=== PATIENT | female | born 1965 | race Caucasian/White ===

== ENCOUNTER → 2017-01-21 | Outpatient (CLI) | payer BC ==
--- NOTE | 2017-01-26 10:20 | RAD ---
DATE: 01/21/2017 EXAM: MAMMO ALBER DIAG LT HISTORY: Six-month follow-up left breast density. COMPARISON: 07/30/2016 and 07/23/2016. This study was interpreted with the benefit of Computerized Aided Detection (CAD). FINDINGS: There is a focal slightly linear nodular density in the outer aspect of the left breast at mid depth approximately 2-3 o'clock location. This is similar to prior screening study from June 2016. No new mass is detected. No malignant appearing microcalcifications are seen. There are benign calcifications in the left breast. The left axilla is unremarkable. Focal density noted on prior mammogram more superiorly on the MLO view is not as well seen on today's study. Left breast ultrasound: Interrogation of the 1-4 o'clock location of the left breast was performed. There is some ductal dilatation at the 3 and 4:00 location, likely accounting for the areas of slight nodularity noted on mammogram. No intraductal mass is detected. No other abnormality is seen. Breast Density: SCATTERED The breast parenchyma shows scattered fibroglandular densities. Breast parenchyma level B. IMPRESSION: Stable left mammogram showing mild ductal dilatation, as described. No suspicious abnormality is detected. The patient should return in 6 months for bilateral screening mammography. BI-RADS CATEGORY: 2 BENIGN FINDING(S) RECOMMENDED FOLLOW-UP: 6M 6 MONTH FOLLOW-UP PQRS compliance statement: Patient information was entered into a reminder system with a target due date 07/23/2017 for the next mammogram. Mammography is a sensitive method for finding small breast cancers, but it does not detect them all and is not a substitute for careful clinical examination. A negative mammogram does not negate a clinically suspicious finding and should not result in delay in biopsying a clinically suspicious abnormality. "Our facility is accredited by the [employer] Mammography [employer]." DICTATED AND SIGNED BY: JUHI FALCON MD DATE: 01/21/17 1514 MTDD
== END | disposition home or self-care (01) ==
LOC: MAMMO 13:11
PROVIDERS: ATTEND Obstetrics & Gynecology
DX: R92.8 Other abnormal and inconclusive findings on diagnostic imaging of breast (principal)
CPT/HCPCS: 76641; G0206; G0279; 77061; 77065

== ENCOUNTER → 2020-05-09 | Outpatient (CLI) | payer BC ==
--- NOTE | 2020-05-14 10:57 | RAD ---
DATE: 05/09/2020 EXAM: MAMMO ALBER SCREENING BILATERAL HISTORY: Screening COMPARISON: 07/04/2015, 06/14/2014, 06/04/2013 This study was interpreted with the benefit of Computerized Aided Detection (CAD). Breast Density: SCATTERED The breast parenchyma shows scattered fibroglandular densities. Breast parenchyma level B. FINDINGS: Well-circumscribed ovoid mass in the right breast at 12:00 is unchanged from 2013. A more tubular ovoid mass in the outer left breast is also unchanged from 2013 and correlated with a dilated duct on prior ultrasound. There is no suspicious mass, architectural distortion, or suspicious calcification. IMPRESSION: No evidence of malignancy. BI-RADS CATEGORY: 2 BENIGN FINDING(S) RECOMMENDED FOLLOW-UP: 12M 12 MONTH FOLLOW-UP PQRS compliance statement: Patient information was entered into a reminder system with a target due date 05/10/2021 for the next mammogram. Mammography is a sensitive method for finding small breast cancers, but it does not detect them all and is not a substitute for careful clinical examination. A negative mammogram does not negate a clinically suspicious finding and should not result in delay in biopsying a clinically suspicious abnormality. "Our facility is accredited by the [employer] Mammography [employer]."
== END ==
LOC: MAMMO 14:26
PROVIDERS: ATTEND Obstetrics & Gynecology
DX: Z12.31 Encounter for screening mammogram for malignant neoplasm of breast (principal)
CPT/HCPCS: 77063; 77067

== ENCOUNTER → 2021-05-15 | Outpatient (CLI) | payer BC ==
--- NOTE | 2021-05-18 14:50 | RAD ---
Bilateral digital screening mammogram to include digital breast tomosynthesis (3-D mammography) 05/15 CLINICAL HISTORY: Screening study. Digital MLO and CC mammograms of both breasts were obtained. Additionally digital breast tomosynthesi s images (3-D mammography) of both breasts in the CC and MLO projections were obtained. Comparison studies are dated 05/09/2028, 01/21/2017 and 07/23/2016. The breast parenchyma is composed of scattered fibroglandular densities which can obscure a lesion on mammography (breast density B). A benign-appearing mass is seen within the right breast, unchanged. Benign-appearing calcifications are seen within the left breast. No spiculated mass is seen. No malig nant appearing calcification or area of architectural distortion is noted. Digital breast tomosynthesis images demonstrate no spiculated mass. No malignant appearing calcificat ion is seen. Impression: BI-RADS Category 1: Negative. There is no mammographic evidence of malignancy. Routine y early screening mammography is recommended for follow-up. This examination was reviewed with the aid of computer-aided detection. A mammogram does not have 100% sensitivity and therefore a negative imaging study should not delay fu rther work up of a suspicious abnormality. Patient information is entered into the reminder system with a target due date for the next screening mammogram of 05/15/2022. "Our facility is accredited by the [employer] Mammography Program." Electronically signed by: Joseph Samaniego MD (05/18/2021 2:48 PM) [id number]
== END ==
LOC: MAMMO 12:57
PROVIDERS: ATTEND Obstetrics & Gynecology
DX: Z12.31 Encounter for screening mammogram for malignant neoplasm of breast (principal)
CPT/HCPCS: 77063; 77067

== ENCOUNTER → 2021-07-03 | Outpatient (CLI) | payer BC ==
--- NOTE | 2021-07-06 08:59 | RAD ---
US PELVIS COMPLETE History: Reason: LLQ PAIN, S/P HYSTERECTOMY / Spl. Instructions: / History: Comparison: None Technique: Grayscale and color Doppler imaging of the pelvis was performed using transabdominal and t ransvaginal technique. Findings: Prior hysterectomy. Bilateral ovaries not identified due to positioning and overlying structures. No adnexal mass or fluid collection. IMPRESSION: 1. Prior hysterectomy. 2. Bilateral ovaries not identified. Electronically signed by: Alex Doty DO (07/06/2021 8:56 AM) [id number]
== END ==
LOC: US 15:40
PROVIDERS: ATTEND Obstetrics & Gynecology
DX: R10.32 Left lower quadrant pain (principal); Z90.710 Acquired absence of both cervix and uterus
CPT/HCPCS: 76856